=== PATIENT | male | born 1930 | race Caucasian/White ===

== ENCOUNTER 2018-01-29 00:18 | Emergency (ER) | payer MEDICARE ==
[~2018-01-29] VITALS: Ht 175.3 cm; Wt 74.8 kg
[~2018-01-29 00:18] MED LIST: RXCEPH500 PO; RXOXYACE PO
[2018-01-29] MEDS ORDERED: DIGOX125 MCG PO (01:02)
[2018-01-29] MEDS ORDERED: ATOR10 PO (01:02)
[2018-01-29] MEDS ORDERED: METO25ER PO (01:03)
[2018-01-29] MEDS ORDERED: WARF5 PO (01:03)
[2018-01-29] MEDS ORDERED: Lisinopril2.5 MG (01:03)
[2018-01-29 03:08] LABS: BASOPHILS ABSOLUTE AUTO 0.04 K/mm3 (0.00-0.23); BASOPHILS PERCENT AUTO 0 % (0-2); EOSINOPHILS ABSOLUTE AUTO 0.01 K/mm3 (0.00-0.68); EOSINOPHILS PERCENT AUTO 0 % (0-6); Hematocrit 41.4 % (37.0-53.0); Hemoglobin 13.1 g/dL (13.5-17.5); IMMATURE GRAN ABSOLUTE AUTO 0.03 K/mm3 (0.00-0.10); IMMATURE GRAN PERCENT AUTO 0 % (0-1); LYMPHOCYTES ABSOLUTE AUTO 1.42 K/mm3 (0.84-5.20); LYMPHOCYTES PERCENT AUTO 15 % (21-46); MONOCYTES ABSOLUTE AUTO 1.58 K/mm3 (0.16-1.47); MONOCYTES PERCENT AUTO 16 % (4-13); Mean Corpuscular HGB 31.2 pg (26.0-34.0); Mean Corpuscular HGB Conc 31.6 g/dL (31.5-36.5); Mean Corpuscular Volume 99 fL (80-100); Mean Platelet Volume 10.2 fL (9.1-12.4); NEUTROPHILS PERCENT AUTO 68 % (41-73); Platelet Count 202 K/mm3 (150-400); RDW Coefficient Variation 13.1 % (11.7-14.2); RDW Standard Deviation 46.7 fL (35.1-46.3); White Blood Cell Count 9.68 K/mm3 (4.00-11.30)
[2018-01-29 03:24] LABS: International Normalized Ratio 2.34
[2018-01-29 03:27] LABS: Alanine Aminotransfer (ALT/SGP 21 U/L (12-78); Albumin, Blood 3.6 g/dL (3.4-5.0); Alk Phos 155 U/L (50-136); Anion Gap 9 mmol/L (6-16); Aspartate Aminotrans (AST/SGOT 21 U/L (12-37); Bilirubin, Total 0.5 mg/dL (0.1-1.0); Blood Urea Nitrogen 21 mg/dL (8-24); Bun/Creatinine Ratio 22.9 (12.0-20.0); CO2, Blood 25 mmol/L (21-32); Calcium, Blood 8.3 mg/dL (8.5-10.1); Chloride, Blood 105 mmol/L (98-108); Creatinine, Blood 0.92 mg/dL (0.60-1.20); Globulin, Blood 3.5 g/dL (2.2-4.0); Glomerular Filtration Rate >60 (60-); Glucose, Blood 92 mg/dL (70-99); Potassium, Blood 4.2 mmol/L (3.5-5.5); Sodium, Blood 139 mmol/L (136-145); Total Protein, Blood 7.1 g/dL (6.4-8.2)
== END 2018-01-29 03:59 | disposition home or self-care (01) ==
LOC: ER 00:18
PROVIDERS: Emergency Medicine
DX: R19.7 Diarrhea, unspecified (principal); Z79.899 Other long term (current) drug therapy; Z79.01 Long term (current) use of anticoagulants
CPT/HCPCS: 36415; 80053; 85025; 85610; 99283

== ENCOUNTER 2018-07-20 17:18 | Inpatient (IN) | payer OTHER, MEDICARE ==
[~2018-07-20] VITALS: Ht 175.3 cm; Wt 71.9 kg
[~2018-07-20 17:18] MED LIST changes: +ATOR10 PO; +DIGOX125 MCG PO; +Lisinopril2.5 MG; +METO25ER PO; +WARF5 PO
[2018-07-20 17:33] LABS: BASOPHILS ABSOLUTE AUTO 0.07 K/mm3 (0.00-0.23); BASOPHILS PERCENT AUTO 1 % (0-2); EOSINOPHILS ABSOLUTE AUTO 0.17 K/mm3 (0.00-0.68); EOSINOPHILS PERCENT AUTO 2 % (0-6); Hematocrit 41.1 % (37.0-53.0); Hemoglobin 12.8 g/dL (13.5-17.5); IMMATURE GRAN ABSOLUTE AUTO 0.25 K/mm3 (0.00-0.10); IMMATURE GRAN PERCENT AUTO 2 % (0-1); LYMPHOCYTES ABSOLUTE AUTO 2.99 K/mm3 (0.84-5.20); LYMPHOCYTES PERCENT AUTO 29 % (21-46); MONOCYTES ABSOLUTE AUTO 1.25 K/mm3 (0.16-1.47); MONOCYTES PERCENT AUTO 12 % (4-13); Mean Corpuscular HGB 30.1 pg (26.0-34.0); Mean Corpuscular HGB Conc 31.1 g/dL (31.5-36.5); Mean Corpuscular Volume 97 fL (80-100); Mean Platelet Volume 9.9 fL (9.1-12.4); NEUTROPHILS ABSOLUTE AUTO 5.62 K/mm3 (1.96-9.15); NEUTROPHILS PERCENT AUTO 54 % (41-73); Platelet Count 349 K/mm3 (150-400); RDW Coefficient Variation 13.5 % (11.7-14.2); RDW Standard Deviation 48.2 fL (35.1-46.3); Red Blood Cell Count 4.25 M/mm3 (4.30-5.90); White Blood Cell Count 10.35 K/mm3 (4.00-11.30)
[2018-07-20 17:48] LABS: International Normalized Ratio 2.68; Prothrombin Time Results 26.1 Sec (9.7-11.5)
[2018-07-20 17:50] LABS: Alanine Aminotransfer (ALT/SGP 22 U/L (12-78); Albumin, Blood 3.3 g/dL (3.4-5.0); Albumin/Globulin Ratio 0.8 (0.8-1.8); Alk Phos 229 U/L (50-136); Anion Gap 7 mmol/L (6-16); Aspartate Aminotrans (AST/SGOT 33 U/L (12-37); Bilirubin, Total 0.7 mg/dL (0.1-1.0); Blood Urea Nitrogen 11 mg/dL (8-24); Bun/Creatinine Ratio 14.7 (12.0-20.0); CO2, Blood 28 mmol/L (21-32); Chloride, Blood 103 mmol/L (98-108); Creatinine, Blood 0.75 mg/dL (0.60-1.20); Ethanol (Alcohol), Blood, Med <3 mg/dL; Globulin, Blood 4.1 g/dL (2.2-4.0); Glomerular Filtration Rate >60 (60-); Glucose, Blood 122 mg/dL (70-99); Potassium, Blood 5.2 mmol/L (3.5-5.5); Sodium, Blood 138 mmol/L (136-145); Total Protein, Blood 7.4 g/dL (6.4-8.2)
[2018-07-20 20:36] LABS: Digoxin (Lanoxin) 0.24 ug/mL (0.80-2.00)
[2018-07-20 22:28] LABS: Hematocrit 37.7 % (37.0-53.0); Hemoglobin 11.7 g/dL (13.5-17.5)
[2018-07-21 01:58] LABS: U Amphetamine Screen Not Detected; U Barbituate Screen Not Detected; U Benzodiazapine Screen Not Detected; U Buprenorphine Screen Not Detected; U Cannabinoids Screen Not Detected; U Cocaine Screen Not Detected; U Methadone Screen Not Detected; U Methamphetamine Screen DETECTED; U Opiates Screen Not Detected; U Oxycodone Screen Not Detected; U Phencyclidine Screen Not Detected; U Propoxyphene Screen Not Detected
[2018-07-21 04:29] LABS: International Normalized Ratio 2.54; Prothrombin Time Results 24.8 Sec (9.7-11.5)
[2018-07-21 04:36] LABS: Anion Gap 9 mmol/L (6-16); Blood Urea Nitrogen 11 mg/dL (8-24); Bun/Creatinine Ratio 14.2 (12.0-20.0); CO2, Blood 25 mmol/L (21-32); Calcium, Blood 8.3 mg/dL (8.5-10.1); Chloride, Blood 105 mmol/L (98-108); Creatinine, Blood 0.77 mg/dL (0.60-1.20); Glomerular Filtration Rate >60 (60-); Glucose, Blood 116 mg/dL (70-99); Potassium, Blood 4.4 mmol/L (3.5-5.5); Sodium, Blood 139 mmol/L (136-145)
[2018-07-21 06:40] LABS: Magnesium, Blood 1.8 mg/dL (1.6-2.4)
[2018-07-22 06:25] LABS: International Normalized Ratio 3.58; Prothrombin Time Results 34.3 Sec (9.7-11.5)
[2018-07-22 08:56] LABS: BASOPHILS ABSOLUTE AUTO 0.02 K/mm3 (0.00-0.23); BASOPHILS PERCENT AUTO 0 % (0-2); EOSINOPHILS ABSOLUTE AUTO 0.01 K/mm3 (0.00-0.68); EOSINOPHILS PERCENT AUTO 0 % (0-6); Hematocrit 32.8 % (37.0-53.0); Hemoglobin 10.3 g/dL (13.5-17.5); IMMATURE GRAN ABSOLUTE AUTO 0.06 K/mm3 (0.00-0.10); IMMATURE GRAN PERCENT AUTO 1 % (0-1); LYMPHOCYTES ABSOLUTE AUTO 1.44 K/mm3 (0.84-5.20); LYMPHOCYTES PERCENT AUTO 12 % (21-46); MONOCYTES ABSOLUTE AUTO 1.31 K/mm3 (0.16-1.47); MONOCYTES PERCENT AUTO 11 % (4-13); Mean Corpuscular HGB 30.2 pg (26.0-34.0); Mean Corpuscular HGB Conc 31.4 g/dL (31.5-36.5); Mean Corpuscular Volume 96 fL (80-100); Mean Platelet Volume 10.7 fL (9.1-12.4); NEUTROPHILS ABSOLUTE AUTO 8.89 K/mm3 (1.96-9.15); NEUTROPHILS PERCENT AUTO 76 % (41-73); Platelet Count 257 K/mm3 (150-400); RDW Coefficient Variation 13.8 % (11.7-14.2); RDW Standard Deviation 48.5 fL (35.1-46.3); Red Blood Cell Count 3.41 M/mm3 (4.30-5.90); White Blood Cell Count 11.73 K/mm3 (4.00-11.30)
[2018-07-22 09:15] LABS: Anion Gap 10 mmol/L (6-16); Blood Urea Nitrogen 22 mg/dL (8-24); Bun/Creatinine Ratio 25.7 (12.0-20.0); CO2, Blood 25 mmol/L (21-32); Calcium, Blood 8.4 mg/dL (8.5-10.1); Chloride, Blood 104 mmol/L (98-108); Creatinine, Blood 0.86 mg/dL (0.60-1.20); Glomerular Filtration Rate >60 (60-); Glucose, Blood 128 mg/dL (70-99); Potassium, Blood 4.2 mmol/L (3.5-5.5); Sodium, Blood 139 mmol/L (136-145)
[2018-07-23 04:16] LABS: BASOPHILS ABSOLUTE AUTO 0.02 K/mm3 (0.00-0.23); BASOPHILS PERCENT AUTO 0 % (0-2); EOSINOPHILS ABSOLUTE AUTO 0.05 K/mm3 (0.00-0.68); EOSINOPHILS PERCENT AUTO 0 % (0-6); Hematocrit 30.5 % (37.0-53.0); Hemoglobin 9.7 g/dL (13.5-17.5); IMMATURE GRAN ABSOLUTE AUTO 0.07 K/mm3 (0.00-0.10); IMMATURE GRAN PERCENT AUTO 1 % (0-1); LYMPHOCYTES ABSOLUTE AUTO 1.71 K/mm3 (0.84-5.20); LYMPHOCYTES PERCENT AUTO 11 % (21-46); MONOCYTES ABSOLUTE AUTO 1.23 K/mm3 (0.16-1.47); MONOCYTES PERCENT AUTO 8 % (4-13); Mean Corpuscular HGB 29.7 pg (26.0-34.0); Mean Corpuscular HGB Conc 31.8 g/dL (31.5-36.5); Mean Platelet Volume 10.3 fL (9.1-12.4); NEUTROPHILS ABSOLUTE AUTO 12.08 K/mm3 (1.96-9.15); NEUTROPHILS PERCENT AUTO 80 % (41-73); Platelet Count 236 K/mm3 (150-400); RDW Coefficient Variation 13.7 % (11.7-14.2); RDW Standard Deviation 46.6 fL (35.1-46.3); Red Blood Cell Count 3.27 M/mm3 (4.30-5.90); White Blood Cell Count 15.16 K/mm3 (4.00-11.30)
[2018-07-23 04:18] LABS: Mean Corpuscular Volume 93 fL (80-100)
[2018-07-23 04:33] LABS: Anion Gap 7 mmol/L (6-16); Blood Urea Nitrogen 23 mg/dL (8-24); Bun/Creatinine Ratio 31.5 (12.0-20.0); CO2, Blood 26 mmol/L (21-32); Calcium, Blood 8.2 mg/dL (8.5-10.1); Chloride, Blood 103 mmol/L (98-108); Creatinine, Blood 0.73 mg/dL (0.60-1.20); Glomerular Filtration Rate >60 (60-); Glucose, Blood 116 mg/dL (70-99); Potassium, Blood 3.8 mmol/L (3.5-5.5); Sodium, Blood 136 mmol/L (136-145)
[2018-07-23 08:27] LABS: International Normalized Ratio 1.32; Prothrombin Time Results 13.4 Sec (9.7-11.5)
[2018-07-24 08:29] LABS: BASOPHILS ABSOLUTE AUTO 0.03 K/mm3 (0.00-0.23); BASOPHILS PERCENT AUTO 0 % (0-2); EOSINOPHILS ABSOLUTE AUTO 0.17 K/mm3 (0.00-0.68); EOSINOPHILS PERCENT AUTO 2 % (0-6); Hemoglobin 9.5 g/dL (13.5-17.5); IMMATURE GRAN ABSOLUTE AUTO 0.06 K/mm3 (0.00-0.10); IMMATURE GRAN PERCENT AUTO 1 % (0-1); LYMPHOCYTES ABSOLUTE AUTO 1.82 K/mm3 (0.84-5.20); LYMPHOCYTES PERCENT AUTO 17 % (21-46); MONOCYTES ABSOLUTE AUTO 1.14 K/mm3 (0.16-1.47); MONOCYTES PERCENT AUTO 11 % (4-13); Mean Corpuscular HGB 29.9 pg (26.0-34.0); Mean Corpuscular HGB Conc 31.7 g/dL (31.5-36.5); Mean Corpuscular Volume 94 fL (80-100); Mean Platelet Volume 10.4 fL (9.1-12.4); NEUTROPHILS ABSOLUTE AUTO 7.34 K/mm3 (1.96-9.15); NEUTROPHILS PERCENT AUTO 70 % (41-73); Platelet Count 256 K/mm3 (150-400); RDW Coefficient Variation 13.7 % (11.7-14.2); Red Blood Cell Count 3.18 M/mm3 (4.30-5.90); White Blood Cell Count 10.56 K/mm3 (4.00-11.30)
[2018-07-24 08:43] LABS: International Normalized Ratio 1.11; Prothrombin Time Results 11.4 Sec (9.7-11.5)
[2018-07-24 08:55] LABS: Anion Gap 9 mmol/L (6-16); Blood Urea Nitrogen 17 mg/dL (8-24); Bun/Creatinine Ratio 25.3 (12.0-20.0); CO2, Blood 25 mmol/L (21-32); Calcium, Blood 8.3 mg/dL (8.5-10.1); Chloride, Blood 103 mmol/L (98-108); Creatinine, Blood 0.67 mg/dL (0.60-1.20); Glomerular Filtration Rate >60 (60-); Glucose, Blood 90 mg/dL (70-99); Potassium, Blood 3.9 mmol/L (3.5-5.5); Sodium, Blood 137 mmol/L (136-145)
[2018-07-25 08:30] LABS: Anion Gap 6 mmol/L (6-16); Blood Urea Nitrogen 16 mg/dL (8-24); Bun/Creatinine Ratio 22.1 (12.0-20.0); CO2, Blood 27 mmol/L (21-32); Calcium, Blood 8.2 mg/dL (8.5-10.1); Chloride, Blood 104 mmol/L (98-108); Creatinine, Blood 0.72 mg/dL (0.60-1.20); Glomerular Filtration Rate >60 (60-); Glucose, Blood 99 mg/dL (70-99); Sodium, Blood 137 mmol/L (136-145)
[2018-07-25 08:35] LABS: International Normalized Ratio 1.06; Prothrombin Time Results 10.9 Sec (9.7-11.5)
== END 2018-07-25 12:28 | DRG 605 ==
LOC: ER 17:18 → SURS 17:19
PROVIDERS: Emergency Medicine; Internal Medicine Endocrinology, Diabetes & Metabolism; Nurse Practitioner Acute Care; Surgery
DX: S80.12XA Contusion of left lower leg, initial encounter (principal); S06.9X9A Unspecified intracranial injury with loss of consciousness of unspecified duration, initial encounter; I50.20 Unspecified systolic (congestive) heart failure; I69.954 Hemiplegia and hemiparesis following unspecified cerebrovascular disease affecting left non-dominant side; S82.841A Displaced bimalleolar fracture of right lower leg, initial encounter for closed fracture; I25.10 Atherosclerotic heart disease of native coronary artery without angina pectoris; I11.0 Hypertensive heart disease with heart failure; I48.2 Chronic atrial fibrillation; T45.511A Poisoning by anticoagulants, accidental (unintentional), initial encounter; I25.5 Ischemic cardiomyopathy; S01.01XA Laceration without foreign body of scalp, initial encounter; V86.09XA Driver of other special all-terrain or other off-road motor vehicle injured in traffic accident, initial encounter; Y92.488 Other paved roadways as the place of occurrence of the external cause; Z79.01 Long term (current) use of anticoagulants; Z95.1 Presence of aortocoronary bypass graft
CPT/HCPCS: 27810; 36415; 70450; 71045; 71260; 72125; 72170; 73600; 73610; 74177; 80048; 80053; 80162; 83690; 83735; 85014; 85018; 85025; 85610; 85730; 86850; 86900; 86901; 96361; 96374; 96375; 97110; 97162; 97166; 97530; 99152; 99285-25; C8929; G0378; G0480; G8978; G8979; G8987; G8988; J2405; J3010; J3430; J7030; Q9957; Q9967

== ENCOUNTER → 2019-06-08 | Outpatient (CLI) | payer MEDICARE ==
[~2019-06-08] MED LIST changes: +BISA10S PR; +FURO20 PO; +K-Dur10 MEQ PO; +LANOXIN125 MCG PO; -Lisinopril2.5 MG; +Lisinopril2.5 MG PO; +POTA10T PO; +SENN187 PO; +Tylenol325 MG PO; +WARF1 PO; +WARF4 PO; -WARF5 PO
== END | disposition home or self-care (01) ==
LOC: LAB 10:50 → LAB SHORT 10:50
DX: S81.802A Unspecified open wound, left lower leg, initial encounter (principal)
CPT/HCPCS: 87070; 87077; 87147; 87186; 87205

== ENCOUNTER → 2019-08-02 | Outpatient (CLI) | payer MEDICARE ==
[2019-08-02 18:12] LABS: BASOPHILS ABSOLUTE AUTO 0.04 K/mm3 (0.00-0.23); BASOPHILS PERCENT AUTO 1 % (0-2); EOSINOPHILS ABSOLUTE AUTO 0.15 K/mm3 (0.00-0.68); EOSINOPHILS PERCENT AUTO 3 % (0-6); Hematocrit 37.5 % (37.0-53.0); Hemoglobin 11.3 g/dL (13.5-17.5); IMMATURE GRAN ABSOLUTE AUTO 0.02 K/mm3 (0.00-0.10); IMMATURE GRAN PERCENT AUTO 0 % (0-1); LYMPHOCYTES ABSOLUTE AUTO 1.74 K/mm3 (0.84-5.20); LYMPHOCYTES PERCENT AUTO 30 % (21-46); MONOCYTES ABSOLUTE AUTO 0.71 K/mm3 (0.16-1.47); MONOCYTES PERCENT AUTO 12 % (4-13); Mean Corpuscular HGB 30.2 pg (26.0-34.0); Mean Corpuscular HGB Conc 30.1 g/dL (31.5-36.5); Mean Corpuscular Volume 100 fL (80-100); Mean Platelet Volume 10.4 fL (9.1-12.4); NEUTROPHILS ABSOLUTE AUTO 3.19 K/mm3 (1.96-9.15); NEUTROPHILS PERCENT AUTO 55 % (41-73); Platelet Count 258 K/mm3 (150-400); RDW Coefficient Variation 16.3 % (11.7-14.2); RDW Standard Deviation 59.7 fL (35.1-46.3); Red Blood Cell Count 3.74 M/mm3 (4.30-5.90); White Blood Cell Count 5.85 K/mm3 (4.00-11.30)
[2019-08-02 19:59] LABS: Alanine Aminotransfer (ALT/SGP 25 U/L (12-78); Albumin, Blood 3.2 g/dL (3.4-5.0); Albumin/Globulin Ratio 1.1 (0.8-1.8); Alk Phos 133 U/L (50-136); Anion Gap 7 mmol/L (6-16); Aspartate Aminotrans (AST/SGOT 22 U/L (12-37); Bilirubin, Total 0.8 mg/dL (0.1-1.0); Blood Urea Nitrogen 9 mg/dL (8-24); Bun/Creatinine Ratio 12.2 (12.0-20.0); CO2, Blood 30 mmol/L (21-32); Calcium, Blood 8.4 mg/dL (8.5-10.1); Chloride, Blood 108 mmol/L (98-108); Creatinine, Blood 0.74 mg/dL (0.60-1.20); Globulin, Blood 2.9 g/dL (2.2-4.0); Glomerular Filtration Rate >60 (60-); Glucose, Blood 156 mg/dL (70-99); Magnesium, Blood 1.7 mg/dL (1.6-2.4); Potassium, Blood 3.1 mmol/L (3.5-5.5); Sodium, Blood 145 mmol/L (136-145); Total Protein, Blood 6.1 g/dL (6.4-8.2)
== END | disposition home or self-care (01) ==
LOC: LAB SHORT 13:30 → LAB SRC 13:30
PROVIDERS: Nurse Practitioner Family
DX: R41.82 Altered mental status, unspecified (principal); I48.91 Unspecified atrial fibrillation; I25.10 Atherosclerotic heart disease of native coronary artery without angina pectoris
CPT/HCPCS: 80053; 83735; 85025

== ENCOUNTER → 2019-08-16 | Outpatient (CLI) | payer MEDICARE ==
[2019-08-16 19:08] LABS: Bilirubin, Urine Neg (Neg); Blood, Urine 2+ (Neg); Glucose Qualitative, Urine Neg (Neg); Ketones, Urine Neg (Neg); Leukocyte Esterase, Urine 2+ (Neg); Nitrite, Urine Neg (Neg); Protein, Urine 4+ (Neg); Urobilinogen, Urine NORM (Normal)
[2019-08-16 19:17] LABS: Appearance, Urine Hazy (Clear); Color, Urine Yellow (P-Yellow)
[2019-08-16 19:18] LABS: White Blood Cells, Urine 25-50 /hpf (0-5)
[2019-08-16 19:19] LABS: Bacteria Few /hpf; Hyaline Casts 0-2 /lpf (0-2); Mucus Light (0-Heavy); Squamous Epithelial Cells Few /hpf (Few)
== END | disposition home or self-care (01) ==
LOC: LAB HH 18:47
PROVIDERS: Hospitalist
DX: N39.0 Urinary tract infection, site not specified (principal)
CPT/HCPCS: 81001; 87086

== ENCOUNTER 2019-08-22 13:09 | Inpatient (IN) | payer MEDICARE ==
[~2019-08-22] VITALS: Ht 175.3 cm; Wt 78.7 kg
[~2019-08-22 13:09] MED LIST changes: -BISA10S PR; -FURO20 PO; -K-Dur10 MEQ PO; -LANOXIN125 MCG PO; -POTA10T PO; -SENN187 PO; -Tylenol325 MG PO; -WARF4 PO
[2019-08-22 14:19] LABS: BASOPHILS ABSOLUTE AUTO 0.05 K/mm3 (0.00-0.23); BASOPHILS PERCENT AUTO 1 % (0-2); EOSINOPHILS ABSOLUTE AUTO 0.14 K/mm3 (0.00-0.68); EOSINOPHILS PERCENT AUTO 2 % (0-6); Hematocrit 47.2 % (37.0-53.0); Hemoglobin 14.1 g/dL (13.5-17.5); IMMATURE GRAN ABSOLUTE AUTO 0.02 K/mm3 (0.00-0.10); IMMATURE GRAN PERCENT AUTO 0 % (0-1); LYMPHOCYTES ABSOLUTE AUTO 2.37 K/mm3 (0.84-5.20); LYMPHOCYTES PERCENT AUTO 30 % (21-46); MONOCYTES ABSOLUTE AUTO 0.99 K/mm3 (0.16-1.47); MONOCYTES PERCENT AUTO 13 % (4-13); Mean Corpuscular HGB 30.4 pg (26.0-34.0); Mean Corpuscular HGB Conc 29.9 g/dL (31.5-36.5); Mean Corpuscular Volume 102 fL (80-100); Mean Platelet Volume 10.7 fL (9.1-12.4); NEUTROPHILS ABSOLUTE AUTO 4.26 K/mm3 (1.96-9.15); NEUTROPHILS PERCENT AUTO 54 % (41-73); Platelet Count 226 K/mm3 (150-400); RDW Coefficient Variation 15.6 % (11.7-14.2); RDW Standard Deviation 58.7 fL (35.1-46.3); Red Blood Cell Count 4.64 M/mm3 (4.30-5.90); White Blood Cell Count 7.83 K/mm3 (4.00-11.30)
[2019-08-22 14:40] LABS: Alanine Aminotransfer (ALT/SGP 23 U/L (12-78); Albumin, Blood 3.6 g/dL (3.4-5.0); Albumin/Globulin Ratio 1.1 (0.8-1.8); Alk Phos 144 U/L (50-136); Anion Gap 5 mmol/L (6-16); Aspartate Aminotrans (AST/SGOT 29 U/L (12-37); Blood Urea Nitrogen 10 mg/dL (8-24); Bun/Creatinine Ratio 13.3 (12.0-20.0); CO2, Blood 26 mmol/L (21-32); Chloride, Blood 111 mmol/L (98-108); Creatinine, Blood 0.75 mg/dL (0.60-1.20); Globulin, Blood 3.3 g/dL (2.2-4.0); Glomerular Filtration Rate >60 (60-); Glucose, Blood 126 mg/dL (70-99); Potassium, Blood 4.4 mmol/L (3.5-5.5); Sodium, Blood 142 mmol/L (136-145); Total Protein, Blood 6.9 g/dL (6.4-8.2); Troponin I <0.015 ng/mL (0.000-0.040)
[2019-08-22 19:10] LABS: Digoxin (Lanoxin) <0.06 ug/mL (0.80-2.00)
[2019-08-22 19:48] LABS: International Normalized Ratio 3.92; Prothrombin Time Results 36.7 Sec (9.7-11.5)
[2019-08-22] MEDS ORDERED: WARF4 PO (19:55)
[2019-08-22] MEDS ORDERED: POTA10T PO (19:56)
--- NOTE | 2019-08-22 23:46 | NUR ---
ASSUMED CARE OF PATIENT AT APPROXIMATELY 2206 FROM ED RN TEODORO. PATIENT ARRIVED TO UNIT VIA STRETCHER; TRANSFER VIA 4 STAFF AND SLIDE SHEET FROM ED STRETCHER TO PCU STRETCHER. 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 PATIENT DENIES PAIN, NUMBNESS, TINGLING, DIZZINESS AND NAUSEA. ADMISSION COMPLETE. PATIENT NEEDS ASSISTANCE URINATING HOURLY; URINE SAMPLE SENT. AFIB WITH PVCS WITH RATE 90-110 ON TELE; OXYGEN SATURATION ABOVE 90% ON 2LPM VIA NC; BASELINE IS ROOM AIR. PATIENT DYSPNEIC AT TIMES. PIV S/L. PATIENT CURRENTLY RESTING IN BED; CALL LIGHT IN REACH; BED IN LOWEST POSISTION; BED ALARM ON; WILL CONTINUE TO MONITOR AND ASSESS UNTIL END OF SHIFT.
[2019-08-22 23:49] LABS: Source, Urine Clean Catch
[2019-08-22 23:52] LABS: Appearance, Urine Clear (Clear); Bilirubin, Urine Neg (Neg); Blood, Urine 4+ (Neg); Color, Urine Yellow (P-Yellow); Glucose Qualitative, Urine Neg (Neg); Ketones, Urine Neg (Neg); Leukocyte Esterase, Urine Neg (Neg); Nitrite, Urine Neg (Neg); Protein, Urine 2+ (Neg); Urobilinogen, Urine NORM (Normal)
[2019-08-22] MEDS ORDERED: LANOXIN125 MCG PO (23:54)
[2019-08-22 23:59] LABS: Bacteria Not Seen /hpf; Red Blood Cells, Urine TNTC /hpf (0-2); Squamous Epithelial Cells Not Seen /hpf (Few); White Blood Cells, Urine Not Seen /hpf (0-5)
[2019-08-23 05:44] LABS: BASOPHILS ABSOLUTE AUTO 0.05 K/mm3 (0.00-0.23); BASOPHILS PERCENT AUTO 1 % (0-2); EOSINOPHILS ABSOLUTE AUTO 0.23 K/mm3 (0.00-0.68); EOSINOPHILS PERCENT AUTO 3 % (0-6); Hematocrit 39.6 % (37.0-53.0); Hemoglobin 11.9 g/dL (13.5-17.5); IMMATURE GRAN ABSOLUTE AUTO 0.02 K/mm3 (0.00-0.10); IMMATURE GRAN PERCENT AUTO 0 % (0-1); LYMPHOCYTES ABSOLUTE AUTO 2.11 K/mm3 (0.84-5.20); LYMPHOCYTES PERCENT AUTO 29 % (21-46); MONOCYTES ABSOLUTE AUTO 1.01 K/mm3 (0.16-1.47); MONOCYTES PERCENT AUTO 14 % (4-13); Mean Corpuscular HGB 29.9 pg (26.0-34.0); Mean Corpuscular HGB Conc 30.1 g/dL (31.5-36.5); Mean Corpuscular Volume 100 fL (80-100); Mean Platelet Volume 10.2 fL (9.1-12.4); NEUTROPHILS ABSOLUTE AUTO 3.86 K/mm3 (1.96-9.15); NEUTROPHILS PERCENT AUTO 53 % (41-73); Platelet Count 218 K/mm3 (150-400); RDW Coefficient Variation 15.4 % (11.7-14.2); RDW Standard Deviation 56.4 fL (35.1-46.3); Red Blood Cell Count 3.98 M/mm3 (4.30-5.90); White Blood Cell Count 7.28 K/mm3 (4.00-11.30)
[2019-08-23 06:04] LABS: Anion Gap 4 mmol/L (6-16); Blood Urea Nitrogen 9 mg/dL (8-24); Bun/Creatinine Ratio 9.9 (12.0-20.0); CO2, Blood 31 mmol/L (21-32); Calcium, Blood 8.4 mg/dL (8.5-10.1); Chloride, Blood 111 mmol/L (98-108); Creatinine, Blood 0.91 mg/dL (0.60-1.20); Glomerular Filtration Rate >60 (60-); Glucose, Blood 70 mg/dL (70-99); Potassium, Blood 3.9 mmol/L (3.5-5.5); Sodium, Blood 146 mmol/L (136-145); Troponin I 0.025 ng/mL (0.000-0.040)
--- NOTE | 2019-08-23 06:07 | NUR ---
PATIENT HAS SLEPT ABOUT FOUR HOURS OFF AND ON; CALLED ABOUT EVERY 30 MINUTES TO AN HOUR TO URINATE. PATIENT'S CONFUSION SEEMED TO GET WORSE THROUGHOUT THE NIGHT; MAKING ODD STATEMENTS. PATIENT ATTEMPTED TO AMBULATE MULTIPLE TIMES T/O THE NIGHT. PATIENT COMPLAINED OF R ANKLE PAIN (CHRONIC); MEDICATED PER EMAR; ICE PACK; WARM BLANKETS. VSS. NO OTHER ACUTE CHANGES TO REPORT. WILL CONTINUE TO MONITOR AND ASSESS UNTIL END OF SHIFT.
--- NOTE | 2019-08-23 08:08 | NUR ---
Al is sleeping when I enter the room, respirations are even and unlabored, he is in Alexis's position. SPO2 100 on 3 l/min n.c. delivery of oxygen . O2 delivery reduced to 2 l/min, no change to spo2.
--- NOTE | 2019-08-23 12:43 | NUR ---
Dr. De Los Santos was here and spoke with the Noa as well as their friend who lives with them and helps Al at home. Code status was discussed.
--- NOTE | 2019-08-23 12:45 | NUR ---
Pt was assisted to the bedside commode, and said that he needed some more time to have a BM. His is in the room, with him, and states she will call the staff when he is done, for staff to assist him off of the bedside commode.
[2019-08-23 14:34] LABS: International Normalized Ratio 3.09; Prothrombin Time Results 29.6 Sec (9.7-11.5)
--- NOTE | 2019-08-23 21:41 | NUR ---
ASSUMED CARE OF PATIENT AT APPROXIMATELY 1900 EMMANUEL Munoz RN. PATIENT SLEEPING DURING BEDSIDE REPORT. PATIENT HAS BEEN INCONTINENT OF URINE AND USING THE URINAL ABOUT EVERY 45 MINUTES; LASIX BID. 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 PATIENT REPORTS THAT HE HALLUCINATES WHEN HE IS DREAMING AT HOME. PATIENT DENIES PAIN, NUMBNESS, TINGLING, DIZZINESS AND NAUSEA. AFIB WITH PVCS WITH RATE 90-110 ON TELE; OXYGEN SATURATION ABOVE 90% ON 2LPM VIA NC; BASELINE IS ROOM AIR. DYSPNEA IMPROVED; PATIENT ABLE TO TOLERATE HOB LOWERED FOR TURNING. PIV S/L. BEDBATH GIVEN. PATIENT CURRENTLY RESTING IN BED; CALL LIGHT IN REACH; BED IN LOWEST POSISTION; BED ALARM ON; WILL CONTINUE TO MONITOR AND ASSESS UNTIL END OF SHIFT.
[2019-08-24 06:22] LABS: International Normalized Ratio 2.13; Prothrombin Time Results 21.1 Sec (9.7-11.5)
[2019-08-24 06:26] LABS: Anion Gap 8 mmol/L (6-16); Blood Urea Nitrogen 15 mg/dL (8-24); Bun/Creatinine Ratio 16.8 (12.0-20.0); CO2, Blood 31 mmol/L (21-32); Calcium, Blood 8.5 mg/dL (8.5-10.1); Chloride, Blood 106 mmol/L (98-108); Creatinine, Blood 0.89 mg/dL (0.60-1.20); Glomerular Filtration Rate >60 (60-); Glucose, Blood 79 mg/dL (70-99); Magnesium, Blood 1.5 mg/dL (1.6-2.4); Potassium, Blood 3.7 mmol/L (3.5-5.5); Sodium, Blood 145 mmol/L (136-145)
--- NOTE | 2019-08-24 06:30 | NUR ---
PATIENT SLEPT ABOUT EIGHT HOURS LAST NIGHT; INCONTINENT OF URINE AND ATTEMPTED TO USE URINAL AT NIGHT; PATIENT URINATED INTO MILK CARTON AT ONE POINT. VSS. NO OTHER ACUTE CHANGES TO REPORT. WILL CONTINUE TO MONITOR AND ASSESS UNTIL END OF SHIFT.
[2019-08-24 06:59] LABS: BASOPHILS ABSOLUTE AUTO 0.04 K/mm3 (0.00-0.23); BASOPHILS PERCENT AUTO 1 % (0-2); EOSINOPHILS PERCENT AUTO 3 % (0-6); Hematocrit 38.5 % (37.0-53.0); IMMATURE GRAN ABSOLUTE AUTO 0.02 K/mm3 (0.00-0.10); IMMATURE GRAN PERCENT AUTO 0 % (0-1); LYMPHOCYTES ABSOLUTE AUTO 2.37 K/mm3 (0.84-5.20); LYMPHOCYTES PERCENT AUTO 29 % (21-46); MONOCYTES ABSOLUTE AUTO 1.02 K/mm3 (0.16-1.47); MONOCYTES PERCENT AUTO 13 % (4-13); Mean Corpuscular HGB 30.6 pg (26.0-34.0); Mean Corpuscular HGB Conc 31.2 g/dL (31.5-36.5); Mean Corpuscular Volume 98 fL (80-100); Mean Platelet Volume 10.1 fL (9.1-12.4); NEUTROPHILS ABSOLUTE AUTO 4.48 K/mm3 (1.96-9.15); NEUTROPHILS PERCENT AUTO 55 % (41-73); Platelet Count 207 K/mm3 (150-400); RDW Coefficient Variation 15.2 % (11.7-14.2); RDW Standard Deviation 54.3 fL (35.1-46.3); Red Blood Cell Count 3.92 M/mm3 (4.30-5.90); White Blood Cell Count 8.13 K/mm3 (4.00-11.30)
--- NOTE | 2019-08-24 12:56 | NUR ---
DISCHARGE SUMMARY- Patient has been up in recliner chair since breakfast, requires 2 person max assist to transfer as he bears weight, but wasn't able to take steps toward the chair to pivot. He is oriented to room, person, events. Denies c/o discomfort or SOB. BP initially low, rechecked and is within paramters for Lasix IV. However, after the Lasix it was below the parameters for Lisinopril (held). Dr. Jannet De Los Santos to see patient with spouse and wrote discharge orders for Home with [facility] to resume. Spouse left around noon to get clothes for patient to go home in.
[2019-08-24] MEDS ORDERED: Tylenol325 MG PO (14:11)
[2019-08-24] MEDS ORDERED: BISA10S PR (14:29)
[2019-08-24] MEDS ORDERED: K-Dur10 MEQ PO (14:40)
[2019-08-24] MEDS ORDERED: SENN187 PO (14:41)
[2019-08-24] MEDS ORDERED: FURO20 PO (14:46)
== END 2019-08-24 15:35 | disposition home or self-care (01) | DRG 291 ==
LOC: ER 13:09 → PCU 20:35
PROVIDERS: Emergency Medicine; Family Medicine; Nurse Practitioner Acute Care; Physician Assistant; ADMIT Internal Medicine
DX: I11.0 Hypertensive heart disease with heart failure (principal); J96.91 Respiratory failure, unspecified with hypoxia; I48.20 Chronic atrial fibrillation, unspecified; I50.43 Acute on chronic combined systolic (congestive) and diastolic (congestive) heart failure; I25.2 Old myocardial infarction; Z95.5 Presence of coronary angioplasty implant and graft; I25.10 Atherosclerotic heart disease of native coronary artery without angina pectoris; Z79.02 Long term (current) use of antithrombotics/antiplatelets; E78.5 Hyperlipidemia, unspecified; I71.4 Abdominal aortic aneurysm, without rupture; I25.5 Ischemic cardiomyopathy; Z66 Do not resuscitate
CPT/HCPCS: 36415; 36416; 71046; 80048; 80053; 80162; 81001; 83735; 83880; 84443; 84484; 85025; 85610; 87086; 87147; 93005; 93010; 93306; 94762; 96374; 97110; 97116; 97162; 97530; 99285-25; A9270; J1940

== ENCOUNTER 2021-07-14 11:53 | Emergency (ER) | payer OTHER ==
[~2021-07-14] VITALS: Ht 175.3 cm; Wt 72.6 kg
[~2021-07-14 11:53] MED LIST changes: +ACET325 PO; -ATOR10 PO; +ATOR40TA PO; +BISA10S PR; +FURO20 PO; +K-Dur10 MEQ PO; +LANOXIN125 MCG PO; +POTA10T PO; +SENN187 PO; +WARF4 PO
[2021-07-14 13:28] LABS: BASOPHILS ABSOLUTE AUTO 0.03 K/mm3 (0.00-0.23); BASOPHILS PERCENT AUTO 0 % (0-2); EOSINOPHILS PERCENT AUTO 0 % (0-6); Hematocrit 41.5 % (37.0-53.0); Hemoglobin 13.2 g/dL (13.5-17.5); IMMATURE GRAN ABSOLUTE AUTO 0.09 K/mm3 (0.00-0.10); IMMATURE GRAN PERCENT AUTO 1 % (0-1); LYMPHOCYTES ABSOLUTE AUTO 1.46 K/mm3 (0.84-5.20); LYMPHOCYTES PERCENT AUTO 18 % (21-46); MONOCYTES PERCENT AUTO 10 % (4-13); Mean Corpuscular HGB 30.6 pg (26.0-34.0); Mean Corpuscular HGB Conc 31.8 g/dL (31.5-36.5); Mean Corpuscular Volume 96 fL (80-100); Mean Platelet Volume 11.1 fL (9.1-12.4); NEUTROPHILS ABSOLUTE AUTO 5.58 K/mm3 (1.96-9.15); NEUTROPHILS PERCENT AUTO 70 % (41-73); Platelet Count 224 K/mm3 (150-400); RDW Coefficient Variation 13.5 % (11.7-14.2); RDW Standard Deviation 48.7 fL (35.1-46.3); Red Blood Cell Count 4.32 M/mm3 (4.30-5.90); White Blood Cell Count 7.96 K/mm3 (4.00-11.30)
[2021-07-14 13:47] LABS: Alanine Aminotransfer (ALT/SGP 26 U/L (12-78); Albumin, Blood 3.2 g/dL (3.4-5.0); Albumin/Globulin Ratio 0.8 (0.8-1.8); Alk Phos 145 U/L (50-136); Anion Gap 8 mmol/L (6-16); Aspartate Aminotrans (AST/SGOT 39 U/L (12-37); Bilirubin, Total 0.6 mg/dL (0.1-1.0); Blood Urea Nitrogen 26 mg/dL (8-24); Bun/Creatinine Ratio 23.6 (12.0-20.0); CO2, Blood 23 mmol/L (21-32); Calcium, Blood 9.1 mg/dL (8.5-10.1); Chloride, Blood 108 mmol/L (98-108); Glomerular Filtration Rate >60 (60-); Glucose, Blood 97 mg/dL (70-99); Potassium, Blood 3.7 mmol/L (3.5-5.5); Sodium, Blood 139 mmol/L (136-145); Total Protein, Blood 7.2 g/dL (6.4-8.2)
== END 2021-07-14 19:40 | disposition home or self-care (01) ==
LOC: ER 11:53
PROVIDERS: Emergency Medicine
DX: U07.1 COVID-19 (principal); I48.91 Unspecified atrial fibrillation; R53.1 Weakness; R53.83 Other fatigue; R41.0 Disorientation, unspecified; R00.0 Tachycardia, unspecified; I11.0 Hypertensive heart disease with heart failure; I50.22 Chronic systolic (congestive) heart failure; I25.10 Atherosclerotic heart disease of native coronary artery without angina pectoris; Z95.1 Presence of aortocoronary bypass graft; Z79.01 Long term (current) use of anticoagulants; Z79.899 Other long term (current) drug therapy
CPT/HCPCS: 36415; 71045; 80053; 83735; 85025; 93005; 93010; 99285-25; A9270; J7030

== ENCOUNTER 2021-07-16 16:40 | Inpatient (IN) | payer OTHER ==
[~2021-07-16] VITALS: Ht 175.3 cm; Wt 74.1 kg
[2021-07-16 17:30] LABS: Hematocrit 36.8 % (37.0-53.0); Mean Corpuscular HGB 30.6 pg (26.0-34.0); Mean Corpuscular HGB Conc 32.6 g/dL (31.5-36.5); Mean Corpuscular Volume 94 fL (80-100); Mean Platelet Volume 11.5 fL (9.1-12.4); Platelet Count 243 K/mm3 (150-400); RDW Coefficient Variation 13.6 % (11.7-14.2); RDW Standard Deviation 46.9 fL (35.1-46.3); Red Blood Cell Count 3.92 M/mm3 (4.30-5.90); White Blood Cell Count 8.99 K/mm3 (4.00-11.30)
[2021-07-16 17:45] LABS: Alanine Aminotransfer (ALT/SGP 21 U/L (12-78); Albumin, Blood 2.8 g/dL (3.4-5.0); Albumin/Globulin Ratio 0.8 (0.8-1.8); Alk Phos 123 U/L (50-136); Anion Gap 9 mmol/L (6-16); Aspartate Aminotrans (AST/SGOT 45 U/L (12-37); Bilirubin, Total 0.8 mg/dL (0.1-1.0); Blood Urea Nitrogen 19 mg/dL (8-24); Bun/Creatinine Ratio 19.1 (12.0-20.0); CO2, Blood 23 mmol/L (21-32); Calcium, Blood 8.1 mg/dL (8.5-10.1); Chloride, Blood 109 mmol/L (98-108); Creatinine, Blood 0.99 mg/dL (0.60-1.20); Globulin, Blood 3.6 g/dL (2.2-4.0); Glomerular Filtration Rate >60 (60-); Glucose, Blood 91 mg/dL (70-99); Potassium, Blood 3.6 mmol/L (3.5-5.5); Sodium, Blood 141 mmol/L (136-145); Total Protein, Blood 6.4 g/dL (6.4-8.2); Troponin I 0.138 ng/mL (0.000-0.040)
[2021-07-16 17:55] LABS: BAND PERCENT MAN 8 % (0-8); BASOPHILS PERCENT MAN 0 % (0-2); EOSINOPHILS PERCENT MAN 0 % (0-6); LYMPHOCYTES % ATYPICAL MANUAL 3 % (0-0); LYMPHOCYTES ABSOLUTE MAN 1.16 K/mm3 (0.84-5.20); LYMPHOCYTES PERCENT MAN 10 % (21-46); METAMYELOCYTE ABSOLUTE MAN 0.08 K/mm3 (0.00-0.00); METAMYELOCYTE PERCENT MAN 1 % (0-0); MONOCYTES ABSOLUTE MAN 0.44 K/mm3 (0.16-1.47); MONOCYTES PERCENT MAN 5 % (4-13); NEUTROPHILS ABSOLUTE MAN 7.28 K/mm3 (1.96-9.15); SEG NEUTROPHILS PERCENT MAN 73 % (41-73); TOTAL CELLS COUNTED 100
[2021-07-16 18:21] LABS: Prothrombin Time Results >90.0 Sec (9.7-11.5)
[2021-07-16 18:25] LABS: International Normalized Ratio >10.00
[2021-07-17 00:30] LABS: CPK Creatine Kinase 134 U/L (39-308); Digoxin (Lanoxin) 1.25 ug/mL (0.80-2.00); Troponin I 0.141 ng/mL (0.000-0.040)
[2021-07-17 08:20] LABS: BASOPHILS ABSOLUTE AUTO 0.02 K/mm3 (0.00-0.23); BASOPHILS PERCENT AUTO 0 % (0-2); EOSINOPHILS PERCENT AUTO 0 % (0-6); Hematocrit 34.9 % (37.0-53.0); Hemoglobin 11.3 g/dL (13.5-17.5); Mean Corpuscular HGB 31.1 pg (26.0-34.0); Mean Corpuscular HGB Conc 32.4 g/dL (31.5-36.5); Mean Corpuscular Volume 96 fL (80-100); Mean Platelet Volume 11.1 fL (9.1-12.4); Platelet Count 218 K/mm3 (150-400); RDW Coefficient Variation 13.6 % (11.7-14.2); RDW Standard Deviation 48.5 fL (35.1-46.3); Red Blood Cell Count 3.63 M/mm3 (4.30-5.90); White Blood Cell Count 5.34 K/mm3 (4.00-11.30)
[2021-07-17 08:27] LABS: IMMATURE GRAN ABSOLUTE AUTO 0.22 K/mm3 (0.00-0.10); IMMATURE GRAN PERCENT AUTO 4 % (0-1); LYMPHOCYTES ABSOLUTE AUTO 0.89 K/mm3 (0.84-5.20); LYMPHOCYTES PERCENT AUTO 17 % (21-46); MONOCYTES ABSOLUTE AUTO 0.21 K/mm3 (0.16-1.47); MONOCYTES PERCENT AUTO 4 % (4-13); NEUTROPHILS PERCENT AUTO 75 % (41-73)
[2021-07-17 08:45] LABS: International Normalized Ratio 1.43; Prothrombin Time Results 15.1 Sec (9.7-11.5)
[2021-07-17 08:58] LABS: Alanine Aminotransfer (ALT/SGP 21 U/L (12-78); Albumin, Blood 2.4 g/dL (3.4-5.0); Albumin/Globulin Ratio 0.7 (0.8-1.8); Alk Phos 113 U/L (50-136); Anion Gap 8 mmol/L (6-16); Aspartate Aminotrans (AST/SGOT 38 U/L (12-37); Bilirubin, Total 0.9 mg/dL (0.1-1.0); Blood Urea Nitrogen 19 mg/dL (8-24); Bun/Creatinine Ratio 20.6 (12.0-20.0); CO2, Blood 24 mmol/L (21-32); CPK Creatine Kinase 116 U/L (39-308); Calcium, Blood 7.6 mg/dL (8.5-10.1); Chloride, Blood 111 mmol/L (98-108); Creatinine, Blood 0.92 mg/dL (0.60-1.20); Globulin, Blood 3.5 g/dL (2.2-4.0); Glomerular Filtration Rate >60 (60-); Glucose, Blood 122 mg/dL (70-99); Potassium, Blood 3.7 mmol/L (3.5-5.5); Sodium, Blood 143 mmol/L (136-145); Total Protein, Blood 5.9 g/dL (6.4-8.2); Troponin I 0.078 ng/mL (0.000-0.040)
--- NOTE | 2021-07-17 18:34 | NUR ---
SHIFT SUMMARY PATIENT NEW ADMIT TO UNIT THIS SHIFT. ALERT, GALENA, AND SOMETIMES FORGETFUL. PLEASANT AND COOPERATIVE. TAKES PILLS WHOLE WITH WATER. IV FLUIDS RUNNING. USING URINAL IN BED. VSS. O2 STABLE ON RA. LUNG SOUNDS DIM THROUGHOUT WITH WET COUGH. TELE AFIB AT 110. DECONDITIONED GENERALLY AND WEAK.
[2021-07-17 21:51] LABS: Source, Urine Catheter
[2021-07-17 21:53] LABS: Bilirubin, Urine Neg (Neg); Blood, Urine 2+ (Neg); Glucose Qualitative, Urine Neg (Neg); Ketones, Urine 1+ (Neg); Leukocyte Esterase, Urine Neg (Neg); Nitrite, Urine Neg (Neg); Protein, Urine 4+ (Neg); Specific Gravity, Urine 1.015 (1.003-1.022); Urobilinogen, Urine NORM (Normal)
[2021-07-17 21:59] LABS: Color, Urine Yellow (P-Yellow)
[2021-07-17 22:18] LABS: Amorphous Light (0-Heavy); Bacteria Mod /hpf; Red Blood Cells, Urine 0-2 /hpf (0-2); Squamous Epithelial Cells Rare /hpf (Few)
[2021-07-17 22:19] LABS: Appearance, Urine Hazy (Clear)
[2021-07-18 05:33] LABS: Hemoglobin 11.5 g/dL (13.5-17.5); Mean Corpuscular HGB 30.3 pg (26.0-34.0); Mean Corpuscular HGB Conc 31.9 g/dL (31.5-36.5); Mean Corpuscular Volume 95 fL (80-100); Mean Platelet Volume 11.6 fL (9.1-12.4); Platelet Count 234 K/mm3 (150-400); RDW Coefficient Variation 13.6 % (11.7-14.2); RDW Standard Deviation 47.5 fL (35.1-46.3)
[2021-07-18 05:46] LABS: International Normalized Ratio 1.36; Prothrombin Time Results 14.4 Sec (9.7-11.5)
[2021-07-18 06:07] LABS: BAND PERCENT MAN 11 % (0-8); BASOPHILS PERCENT MAN 0 % (0-2); EOSINOPHILS PERCENT MAN 0 % (0-6); LYMPHOCYTES ABSOLUTE MAN 1.22 K/mm3 (0.84-5.20); LYMPHOCYTES PERCENT MAN 18 % (21-46); MONOCYTES ABSOLUTE MAN 0.68 K/mm3 (0.16-1.47); MONOCYTES PERCENT MAN 10 % (4-13); MYELOCYTE ABSOLUTE MAN 0.13 K/mm3 (0.00-0.00); MYELOCYTE PERCENT MAN 2 % (0-0); NEUTROPHILS ABSOLUTE MAN 4.76 K/mm3 (1.96-9.15); SEG NEUTROPHILS PERCENT MAN 59 % (41-73); TOTAL CELLS COUNTED 100
[2021-07-18 06:08] LABS: Alanine Aminotransfer (ALT/SGP 20 U/L (12-78); Albumin, Blood 2.2 g/dL (3.4-5.0); Albumin/Globulin Ratio 0.6 (0.8-1.8); Alk Phos 106 U/L (50-136); Anion Gap 8 mmol/L (6-16); Aspartate Aminotrans (AST/SGOT 44 U/L (12-37); Bilirubin, Total 0.9 mg/dL (0.1-1.0); Blood Urea Nitrogen 22 mg/dL (8-24); Bun/Creatinine Ratio 30.3 (12.0-20.0); CO2, Blood 22 mmol/L (21-32); Calcium, Blood 7.9 mg/dL (8.5-10.1); Chloride, Blood 110 mmol/L (98-108); Creatinine, Blood 0.73 mg/dL (0.60-1.20); Globulin, Blood 3.4 g/dL (2.2-4.0); Glomerular Filtration Rate >60 (60-); Glucose, Blood 113 mg/dL (70-99); Potassium, Blood 3.5 mmol/L (3.5-5.5); Sodium, Blood 140 mmol/L (136-145); Total Protein, Blood 5.6 g/dL (6.4-8.2)
--- NOTE | 2021-07-18 07:13 | NUR ---
SHIFT SUMMARY S/P COVID c GENERALIZED WEAKNESS, ALERT, ORIENTED TO SELF AND INTERMITTENTLY PLACE, ABLE TO TELL STORIES ABOUT PAST EXPERIENCES, INCONTINENT c ATTENDS IN PLACE, TELE SHOWS AFIB c PVCs, PT DENIES SOB, DENIES CHEST PAIN/PRESSURE. NO ACUTE EVENTS THIS SHIFT. CALL LIGHT IN REACH, REPORT GIVEN TO DAY RN.
--- NOTE | 2021-07-18 10:46 | NUR ---
PT ALERT ORIENTED X3-4. INTERMITTENT CONFUSION. PATIENT THIS AM CLAIMS "THE CHAIRS ARE UPSIDE DOWN ON THE CEILING, IM SEEING THIS, BUT I KNOW ITS NOT REAL". HE STATES HE HALLUCINATES SOMETIMES. PER ON PHONE THIS IS PATIENTS NORMAL BASELINE. LUNGS SOUNDING DIMINISHED. ON ROOM AIR SATING MID 90'S. DENIES SOB. TELE SHOWING AFIB WITH HR AVERAGING 90'S. DENIES CHEST PAIN/PRESSURE. VITAL SIGNS STABLE. BOWEL TONES PRESENT. ATTENDS IN PLACE. USES WHEELCHAIR AT BASELINE. Q2 TURNING AND NEEDED. LR INFUSING AT 125 ML/HR. SKIN PALE AND FRAGILE. CALL LIGHT IN REACH. DENIES PAIN/NEEDS AT THIS TIME. SPOKE WITH ON PHONE FOR UPDATE. WILL CONTINUE TO MONITOR.
--- NOTE | 2021-07-18 19:21 | NUR ---
NO ACUTE CHANGES. SEE PREVIOUS NOTES. PATIENT HAVING TROUBLE USING URINAL. TWO EPISODES OF INCONTINENCE IN ATTENDS. Q2 TURNING AND NEEDED. PATIENT HARD OF HEARING. SMALL APPETITE. DRINKING WATER THROUGHOUT DAY. DENIES PAINS. REMAINS ON ROOM AIR SATING 94% AND ABOVE. CALL LIGHT IN REACH. REPORTED OFF TO ONCOMING RN.
[2021-07-19 06:19] LABS: BASOPHILS ABSOLUTE AUTO 0.06 K/mm3 (0.00-0.23); BASOPHILS PERCENT AUTO 0 % (0-2); EOSINOPHILS PERCENT AUTO 0 % (0-6); Hemoglobin 12.6 g/dL (13.5-17.5); IMMATURE GRAN ABSOLUTE AUTO 0.51 K/mm3 (0.00-0.10); IMMATURE GRAN PERCENT AUTO 3 % (0-1); LYMPHOCYTES ABSOLUTE AUTO 0.86 K/mm3 (0.84-5.20); LYMPHOCYTES PERCENT AUTO 5 % (21-46); MONOCYTES ABSOLUTE AUTO 1.06 K/mm3 (0.16-1.47); MONOCYTES PERCENT AUTO 6 % (4-13); Mean Corpuscular HGB 31.1 pg (26.0-34.0); Mean Corpuscular HGB Conc 33.2 g/dL (31.5-36.5); Mean Corpuscular Volume 94 fL (80-100); Mean Platelet Volume 11.4 fL (9.1-12.4); NEUTROPHILS ABSOLUTE AUTO 15.32 K/mm3 (1.96-9.15); NEUTROPHILS PERCENT AUTO 86 % (41-73); Platelet Count 257 K/mm3 (150-400); RDW Coefficient Variation 13.4 % (11.7-14.2); RDW Standard Deviation 46.2 fL (35.1-46.3); Red Blood Cell Count 4.05 M/mm3 (4.30-5.90); White Blood Cell Count 17.81 K/mm3 (4.00-11.30)
--- NOTE | 2021-07-19 06:19 | NUR ---
SHIFT SUMMARY PT IS ALERT WITH SOME CONFUSION. HE IS VERY HARD OF HEARING AND HEARING AIDS ARE IN PLACE. STATES LEFT EAR "WORKS" BETTER. VITAL SIGNS ARE STABLE AND ON ROOM AIR WITH SATS ABOVE 92%. PT IS INCONT BUT USES URINAL SOMETIMES, ATTENDS IN PLACE. STATES HE WILL "LET US KNOW WHEN HE HAS HAD AN ACCIDENT." PHONE PLACED IN ROOM SO THAT HE IS ABLE TO COMMUNICATE WITH . HE HAS CALLED HER TWICE. CALL LIGHT IS WITHIN REACH.
[2021-07-19 06:32] LABS: International Normalized Ratio 1.55; Prothrombin Time Results 16.3 Sec (9.7-11.5)
[2021-07-19 06:42] LABS: Alanine Aminotransfer (ALT/SGP 26 U/L (12-78); Albumin, Blood 2.3 g/dL (3.4-5.0); Albumin/Globulin Ratio 0.7 (0.8-1.8); Alk Phos 109 U/L (50-136); Anion Gap 8 mmol/L (6-16); Aspartate Aminotrans (AST/SGOT 55 U/L (12-37); Blood Urea Nitrogen 19 mg/dL (8-24); Bun/Creatinine Ratio 27.5 (12.0-20.0); CO2, Blood 22 mmol/L (21-32); Chloride, Blood 108 mmol/L (98-108); Creatinine, Blood 0.69 mg/dL (0.60-1.20); Globulin, Blood 3.3 g/dL (2.2-4.0); Glomerular Filtration Rate >60 (60-); Glucose, Blood 129 mg/dL (70-99); Potassium, Blood 3.2 mmol/L (3.5-5.5); Sodium, Blood 138 mmol/L (136-145); Total Protein, Blood 5.6 g/dL (6.4-8.2)
--- NOTE | 2021-07-19 11:42 | NUR ---
PT HAS INTERMITTENT CONFUSION, PER THIS IS HIS BASELINE. ABLE TO STATE NAME, BIRTHDATE AND PLACE. PERRLA. DENIES N/T. ON ROOM AIR SATING 94%. VERY WEAK COUGH WITH MINIMAL SPUTUM. LUNGS SOUND DIMINISHED. POSITIONING PATIENT TO HELP WITH COUGH. TELE SHOWING AFIB WITH HR AVERAGING 110 THIS AM. VITAL SIGNS STABLE. DENIES CHEST PAIN/PRESSURE. NO SIGNS OF EDEMA. BOWEL TONES PRESENT. USING URINAL WITH ASSISTANCE, BUT ALSO HAVING INCONTINENT EPISODES. ABDOMEN DISTENED, PER PATIENT THIS IS NORMAL. NO PAIN IN ABDOMEN WITH PALPATION. SKIN OVERALL FRAGILE AND PALE. DENIES OVERALL PAIN. SPOKE WITH DR. ENCINAS THIS AM TO UPDATE. NEW ORDERS PLACED. IV POTASSIUM INFUSING AT THIS TIME. WILL CONTINUE TO MONITOR. CALL LIGHT IN REACH. SPOKE WITH PATIENTS THIS AM TO UPDATE.
--- NOTE | 2021-07-19 13:35 | NUR ---
ANTIBIOTICS INFUSED. POTASSIUM INFUSING. PT NOT HUNGRY FOR LUNCH. VITALS REMAIN STABLE. ON ROOM AIR WITH SATS 94% AND ABOVE. 48 BEAT RUN OF VTACH, NONSYMPTOMATIC, PATIENT SLEEPING AT TIME. STRIP IN CHART. WILL CONTINUE TO MONITOR.
--- NOTE | 2021-07-19 18:35 | NUR ---
NO ACUTE CHANGES. SEE PREVIOUS NOTES. PATIENT REMAINS ON ROOM AIR SATING 94%. ONE EPISODE PATIENT DESATED TO 88% WHEN TRANSFERRING FROM RECLINER TO BED. ABLE TO RECOVER IN 2 MIN. NO CHANGES IN TELE AT THIS TIME. WEAK COUGH CONTINUES. NS WITH KCL INFUSING X1 BAG. CALL LIGHT IN REACH. WILL CONTINUE TO MONITOR AND REPORT OFF. DROPPED OF PATIENTS DENTURES.
[2021-07-20 05:07] LABS: BASOPHILS ABSOLUTE AUTO 0.05 K/mm3 (0.00-0.23); BASOPHILS PERCENT AUTO 0 % (0-2); EOSINOPHILS PERCENT AUTO 0 % (0-6); Hematocrit 37.3 % (37.0-53.0); Hemoglobin 12.6 g/dL (13.5-17.5); IMMATURE GRAN ABSOLUTE AUTO 0.49 K/mm3 (0.00-0.10); IMMATURE GRAN PERCENT AUTO 3 % (0-1); LYMPHOCYTES ABSOLUTE AUTO 0.85 K/mm3 (0.84-5.20); LYMPHOCYTES PERCENT AUTO 5 % (21-46); MONOCYTES ABSOLUTE AUTO 0.85 K/mm3 (0.16-1.47); MONOCYTES PERCENT AUTO 5 % (4-13); Mean Corpuscular HGB 31.2 pg (26.0-34.0); Mean Corpuscular HGB Conc 33.8 g/dL (31.5-36.5); Mean Corpuscular Volume 92 fL (80-100); Mean Platelet Volume 11.7 fL (9.1-12.4); NEUTROPHILS PERCENT AUTO 86 % (41-73); Platelet Count 247 K/mm3 (150-400); RDW Coefficient Variation 13.4 % (11.7-14.2); RDW Standard Deviation 45.4 fL (35.1-46.3); Red Blood Cell Count 4.04 M/mm3 (4.30-5.90); White Blood Cell Count 16.34 K/mm3 (4.00-11.30)
[2021-07-20 05:20] LABS: International Normalized Ratio 2.34; Prothrombin Time Results 24.1 Sec (9.7-11.5)
[2021-07-20 05:41] LABS: Alanine Aminotransfer (ALT/SGP 26 U/L (12-78); Albumin, Blood 2.4 g/dL (3.4-5.0); Albumin/Globulin Ratio 0.7 (0.8-1.8); Alk Phos 114 U/L (50-136); Anion Gap 8 mmol/L (6-16); Aspartate Aminotrans (AST/SGOT 50 U/L (12-37); Bilirubin, Total 0.8 mg/dL (0.1-1.0); Blood Urea Nitrogen 16 mg/dL (8-24); Bun/Creatinine Ratio 22.8 (12.0-20.0); CO2, Blood 22 mmol/L (21-32); Calcium, Blood 8.2 mg/dL (8.5-10.1); Chloride, Blood 110 mmol/L (98-108); Globulin, Blood 3.3 g/dL (2.2-4.0); Glomerular Filtration Rate >60 (60-); Glucose, Blood 122 mg/dL (70-99); Potassium, Blood 3.8 mmol/L (3.5-5.5); Sodium, Blood 140 mmol/L (136-145); Total Protein, Blood 5.7 g/dL (6.4-8.2)
--- NOTE | 2021-07-20 06:14 | NUR ---
SHIFT SUMMARY PT RESTED WELL THROUGH PART OF NIGHT. ALERT AND ORIENTED X2. NEEDS BED ALARM ON. TELE AFIB, RATE WAS UP TO 140'S AT START OF SHIFT, BUT IV METOPROLOL GIVEN WITH IMPROVEMENTS TO HR. RATE NOW 100'S TO 110'S. SATS >90% ON ROOM AIR. RN GAVE NIGHTTIME PO MEDS, PT ASPIRATED ALL OF MEDS AND WATER. CLEARING THROAT OFTEN AFTER ASPIRATION. LUNG SOUNDS CHANGED TO GUNKY/WET - NO CHANGES IN O2 SATS. NO C/O CHEST PAIN. LEFT NPO REST OF NGIHT. INCONTINENT X3. ATTENDS CHANGED X3. NO WOUNDS - PREVENTATIVE MEPILEX IN PLACE ON SACRUM. VSS. CALL LIGHT WTIHN REACH, BED IN LOWEST POSITION. BED ALARM ON. WILL CONTINUE TO MONITOR.
--- NOTE | 2021-07-20 08:45 | NUR ---
INITIAL ASSESSMENT: PATIENT IS AWAKE AND LYING IN BED. PT IS ALERT AND ORIENTED TO SELF, MONTH, PRESIDENT, AND SITUATION. HE IS NOT ORIENTED TO PLACE, HE STATES HE CAME IN BECAUSE, "THEY THOUGHT MY BREATHING WAS NOT TOO GOOD." HE DENIES PAIN AT THIS TIME. HRR. LS COARSE T/O, BIOX 95% ON RA, PT HAS COARSE NPC. PER NOC SHIFT RN PATIENT HAD A DIFFICULTY SWALLOWING HIS PILLS AND POSSIBLY ASPIRATED, THIS WAS DISCUSSED WITH MD. HR IRREG, A-FIB. BT+. PPP. PT ASSISTED OOB TO THE CHAIR, HE WAS VERY WEAK AND A MAX ASSIST WITH A GAIT BELT AND FWW. AFTER HE WAS DONE ON THE COMMODE MYSELF AND ANOTHER RN HELPED HIM GET INTO THE RECLINER. CHAIR ALARM IN PLACE. THIS RN TALKED WITH AND UPDATED THE PATIENTS . PER THE THE PATIENT HAS BEEN BETTING PROGRESSIVELY WEAKER AT HOME, SHE STATES THE PATIENT WAS ON THE PT/OT SERVICE VIA HOME HEALTH THROUGH [facility], HE WAS DISCHARGED. HE DOES PT ORDERED THIS ADMISSION. PT STATES HE IS COMFORTABLE IN THE CHAIR. WILL CONTINUE TO MONITOR.
--- NOTE | 2021-07-20 09:41 | NUR ---
COUGHING while taking pills whole with applesauce. Crushed meds and gave to pt with applesauce, while sitting up in the chair. No coughing.
--- NOTE | 2021-07-20 11:30 | NUR ---
CALL PLACED TO DE. ROBERT TO TOUCH BASE. PT CHANGED TO MEDICAL STATUS. VSS. HR IN THE 70S-80S WHILE ASLEEP AND IN THE 110-115 WA. MD TO TALK WITH REGARDING DC PLANNING. PT DENIES ADDITIONAL NEEDS AT THIS TIME. OOB TO THE CHAIR, CHAIR ALARM IN PLACE FOR SAFETY. CALL LIGHT IN REACH, WILL CONTINUE TO MONITOR.
--- NOTE | 2021-07-20 13:50 | NUR ---
REPORT GIVEN TO RANJIT ENCISO MED FLOOR RN. PT WAS TRANSFERRED TO [facility] VIA RECLINER.
[2021-07-20] MEDS ORDERED: DECADRON6 M1 PO (16:50)
[2021-07-20] MEDS ORDERED: CEFD300 PO (16:52)
--- NOTE | 2021-07-20 18:46 | NUR ---
PT ADMITTED FROM 227 AT 1400 TELE A-FIB 95- ALERT TO SELF AND PLACE IN HOSPITAL. VERY [place]. CAME UP FROM PCU IN RECLINER. INCONT IN ATTENDS. ORIENTED TO ROOM SET UP SAFETY AND CALL LIGHT.
--- NOTE | 2021-07-20 18:50 | NUR ---
SUMMARY- PT UP IN CHAIR ALL OF THE SHIFT. CALL LIGHT IN REACH. TOLERATING FOOD AND SMALL AMOUNTS OF FLUID. PLAN TO DISCHARGE TOMORROW ONCE TX SET UP AND DETERMINED IF AND CAREGIVER OK TO CARE FOR PT AT HOME.
[2021-07-21 06:00] LABS: BASOPHILS ABSOLUTE AUTO 0.05 K/mm3 (0.00-0.23); BASOPHILS PERCENT AUTO 0 % (0-2); EOSINOPHILS PERCENT AUTO 0 % (0-6); Hematocrit 34.6 % (37.0-53.0); Hemoglobin 11.5 g/dL (13.5-17.5); IMMATURE GRAN ABSOLUTE AUTO 0.69 K/mm3 (0.00-0.10); IMMATURE GRAN PERCENT AUTO 4 % (0-1); LYMPHOCYTES ABSOLUTE AUTO 0.99 K/mm3 (0.84-5.20); LYMPHOCYTES PERCENT AUTO 6 % (21-46); MONOCYTES ABSOLUTE AUTO 1.09 K/mm3 (0.16-1.47); MONOCYTES PERCENT AUTO 7 % (4-13); Mean Corpuscular HGB 31.1 pg (26.0-34.0); Mean Corpuscular HGB Conc 33.2 g/dL (31.5-36.5); Mean Corpuscular Volume 94 fL (80-100); Mean Platelet Volume 11.6 fL (9.1-12.4); NEUTROPHILS ABSOLUTE AUTO 13.71 K/mm3 (1.96-9.15); NEUTROPHILS PERCENT AUTO 83 % (41-73); Platelet Count 234 K/mm3 (150-400); RDW Coefficient Variation 13.4 % (11.7-14.2); RDW Standard Deviation 45.5 fL (35.1-46.3); White Blood Cell Count 16.53 K/mm3 (4.00-11.30)
--- NOTE | 2021-07-21 06:09 | NUR ---
SHIFT SUMMARY PATIENT ALERT AND ORIENTED X2. NO COMPLAINTS OF PAIN OR SHORTNESS OF BREATH. NO ACUTE ISSUES NOTED OVERNIGHT. IV PATENT AND FLUSHED. BED IN LOWEST POSITION WITH WHEELS LOCKED AND ALARM ON. CALL LIGHT WITHIN REACH. REPORT GIVEN TO ONCOMING RN.
[2021-07-21 06:15] LABS: International Normalized Ratio 3.14; Prothrombin Time Results 31.8 Sec (9.7-11.5)
[2021-07-21 06:28] LABS: Alanine Aminotransfer (ALT/SGP 23 U/L (12-78); Albumin, Blood 2.2 g/dL (3.4-5.0); Albumin/Globulin Ratio 0.7 (0.8-1.8); Alk Phos 108 U/L (50-136); Anion Gap 7 mmol/L (6-16); Aspartate Aminotrans (AST/SGOT 49 U/L (12-37); Bilirubin, Total 0.7 mg/dL (0.1-1.0); Blood Urea Nitrogen 17 mg/dL (8-24); Bun/Creatinine Ratio 23.7 (12.0-20.0); CO2, Blood 24 mmol/L (21-32); Calcium, Blood 7.3 mg/dL (8.5-10.1); Chloride, Blood 111 mmol/L (98-108); Creatinine, Blood 0.72 mg/dL (0.60-1.20); Glomerular Filtration Rate >60 (60-); Glucose, Blood 110 mg/dL (70-99); Potassium, Blood 3.7 mmol/L (3.5-5.5); Sodium, Blood 142 mmol/L (136-145); Total Protein, Blood 5.2 g/dL (6.4-8.2)
--- NOTE | 2021-07-21 13:43 | NUR ---
LATE ENTRY COPIED FROM [facility] EMR ADMIT: 07/21/21 DISCHARGE: TBD DX: COVID-19 HYPOXIA, AFIB WITH RVR CC: Renee HERRERA OC CALL: CALL AT HOME FOR LC RESIDENCE: LIVES AT HOME WITH CAREGIVER: YON NICE () [phone] HAS FULLTIME CAREGIVER AT HOME (DAUGHTER) DME: WHEELCHAIR CCM: NO RECORD HHC PRIOR TO ADMIT: [facility] UPDATE 07/20/21: PER CHART REVIEW WITH DR. ROBERT, PT. APPROPRIATE FOR D/C TODAY. CONTACTED PATIENT'S AND SHE INITIALLY SAID THAT SHE HAD THE SUPPORT SHE NEEDED TO PROVIDE CARE AT HOME WITH HH ASSISTANCE THROUGH [facility]. CONTACTED PATIENT'S AGAIN AND DAUGHTER ANSWERED. DAUGHTER STATES THAT SHE IS CAREGIVER AND THAT THEY ARE NOT CONFIDENT THAT THEY WILL BE ABLE TO PROVIDE THE PT. WITH THE CARE THAT HE NEEDS. CONCERN WITH NEEDING ADDITIONAL CAREGIVER SUPPORT. FAMILY WAS UNDER THE IMPRESSION THAT MEDICARE COVERED THE COST OF CREDIT RISK OFFICER CARE IN ASSISTED LIVING. DISCUSSED THAT LONG-TERM CARE WOULD REQUIRE MEDICAID, SPEND DOWN, OR FINANCING THE COST PERSONALLY. DAUGHTER ADVISED THAT THEY COULD NOT AFFORD ASSISTED LIVING AND THAT SPEND DOWN WAS NOT AN OPTION WITH PATIENT'S STILL LIVING IN THE HOME. DISCUSSED PATIENT'S CARE WITH DR. ROBERT. RECOMMENDED THAT PT. STAY AT LEAST ONE MORE NIGHT AND HAVE ADDITIONAL PT EVAL. [facility] TO [facility]'S SERVICE CONNECTION PERCENTAGE FOR CAREGIVER ASSISTANCE. WILL DISCUSS CASE FURTHER WITH DR. ZENDJEAS TOMORROW.
--- NOTE | 2021-07-21 13:45 | NUR ---
UPDATE 07/21/21: PER CHART REVIEW WITH DR. ZENDEJAS, PT. WILL CONTINUE TO RECEIVE IV DIURETICS X 2 ADDITIONAL DAYS. REQUESTED PALLIATIVE CARE TO ASSESS PATIENT'S CONDITION AND CONSULT WITH FAMILY. CALL [facility] TO [facility] TO DISCUSS [facility]ICE [facility]CTION. CAREGIVER PACKET WILL BE LEFT AT [facility] BY FAMILY BIRTHPLACE ENTRANCE FOR FAMILY. [facility] HAS BEEN NOTIFIED THAT PT. COULD POTENTIALLY DISCHARGE ON HH OR HOSPICE.
--- NOTE | 2021-07-21 16:30 | NUR ---
After chart review and meeting pt, had a talk with pt's Noa regarding options post hospitalization. Given his history, it appears he would easily qualify for hospice. He has an EF of 25%, Karnofsky score is 50%, NYHA class 111. He also requires assistance in 5/6 ADL's. Had a long discussion with pt's about hospice, and she does understand the benefit in the pt choosing hospice vs home healh when it comes to his needs, and what his current wishes look like for the future. No decision had veen reached today, but they will very likely be ready for the conversation tomorrow.
--- NOTE | 2021-07-21 17:31 | NUR ---
SUMMARY- PT ALERT TO SELF AND THAT HE'S IN THE HOSPITAL. VSS, HR IRREG RATE 100'S. TOLERATING SMALL AMOUNTS OF FOOD AND TAKING IN FLUIDS. UP TO CHAIR WITH PT 2 PERSON MAX ASSIST WITH SLIDE BOARD. 2 MAX ASSIST GAIT BELT BACK TO BED. INCONT ATTENDS, ROUTINE TURNS IN BED. AWAITING PLAN FOR PT'D DISCHARGE.
--- NOTE | 2021-07-21 18:09 | NUR ---
PT UP TO CHAIR FOR A SHORT TIME TODAY, PHYSICAL THERAPY WORKED WITH PT TODAY AND IS RECOMMENDING A ENTERPRISE MANAGER FIBERGLASS MACHINE OPERATOR AT HOME OR POSSIBLY ASSISTED LIVING. NO ACUTE CHANGES NOTED THIS SHIFT, WILL CONTINUE TO MONITOR AND REPORT TO ONCPHIL RN
--- NOTE | 2021-07-22 06:51 | NUR ---
SHIFT SUMMARY PATIENT ALERT AND ORIENTED X2. NO COMPLAINTS OF PAIN OR SHORTNESS OF BREATH. CONTINUES ON ROOM AIR. NO ACUTE ISSUES NOTED. CALL LIGHT WITHIN REACH. REPORT GIVEN TO ONCOMING RN.
[2021-07-22 09:04] LABS: International Normalized Ratio 2.17; Prothrombin Time Results 22.4 Sec (9.7-11.5)
[2021-07-22 09:09] LABS: Alanine Aminotransfer (ALT/SGP 26 U/L (12-78); Albumin, Blood 2.5 g/dL (3.4-5.0); Albumin/Globulin Ratio 0.8 (0.8-1.8); Alk Phos 123 U/L (50-136); Anion Gap 6 mmol/L (6-16); Aspartate Aminotrans (AST/SGOT 56 U/L (12-37); Bilirubin, Total 0.9 mg/dL (0.1-1.0); Blood Urea Nitrogen 16 mg/dL (8-24); Bun/Creatinine Ratio 22.9 (12.0-20.0); CO2, Blood 26 mmol/L (21-32); Calcium, Blood 8.4 mg/dL (8.5-10.1); Chloride, Blood 107 mmol/L (98-108); Globulin, Blood 3.3 g/dL (2.2-4.0); Glomerular Filtration Rate >60 (60-); Glucose, Blood 121 mg/dL (70-99); Magnesium, Blood 1.5 mg/dL (1.6-2.4); Phosphorus, Blood 2.2 mg/dL (2.5-4.9); Sodium, Blood 139 mmol/L (136-145); Total Protein, Blood 5.8 g/dL (6.4-8.2)
--- NOTE | 2021-07-22 09:15 | NUR ---
Update 07/21/21: Palliative care nurse Yojana discussed the option of hospice with patient's Noa. Patient's will discuss with family and very likely to agree to hospice services. She wants to give Alfonzo a chance be able to rest and live out the rest of his life in peace. She was very interested in the services that hospice provides. Yojana planning to discuss with Alfonzo as well. Plan to call patient's tomorrow to discuss further and update [facility] when appropriate.
[2021-07-22 11:58] LABS: BASOPHILS ABSOLUTE AUTO 0.08 K/mm3 (0.00-0.23); BASOPHILS PERCENT AUTO 0 % (0-2); EOSINOPHILS PERCENT AUTO 0 % (0-6); Hematocrit 36.5 % (37.0-53.0); Hemoglobin 12.2 g/dL (13.5-17.5); IMMATURE GRAN ABSOLUTE AUTO 0.74 K/mm3 (0.00-0.10); IMMATURE GRAN PERCENT AUTO 4 % (0-1); LYMPHOCYTES ABSOLUTE AUTO 1.21 K/mm3 (0.84-5.20); LYMPHOCYTES PERCENT AUTO 6 % (21-46); MONOCYTES ABSOLUTE AUTO 1.76 K/mm3 (0.16-1.47); MONOCYTES PERCENT AUTO 8 % (4-13); Mean Corpuscular HGB Conc 33.4 g/dL (31.5-36.5); Mean Corpuscular Volume 93 fL (80-100); NEUTROPHILS ABSOLUTE AUTO 17.13 K/mm3 (1.96-9.15); NEUTROPHILS PERCENT AUTO 82 % (41-73); Platelet Count 284 K/mm3 (150-400); RDW Coefficient Variation 13.6 % (11.7-14.2); RDW Standard Deviation 45.8 fL (35.1-46.3); Red Blood Cell Count 3.94 M/mm3 (4.30-5.90); White Blood Cell Count 20.92 K/mm3 (4.00-11.30)
--- NOTE | 2021-07-22 13:47 | NUR ---
Patient's family has decided to involve hospice in patient's care. Contacted Janessa with [facility] per family request. [facility] unable to get pt. in until next week. Discussed with family and they have requested [facility] and [facility] can provide same day hospice intake tomorrow. Discussed with Dr. Marquez. Plan for pt. to D/C on [facility] hospice tomorrow. Marilou with [facility] will be contacting the family.
--- NOTE | 2021-07-22 15:56 | NUR ---
Pt's code status changed to DNR in [facility] with VO from Dr. Marquez, as his POLST in [facility] is DNR.
--- NOTE | 2021-07-22 16:02 | NUR ---
SHIFT SUMMARY PATIENT DENIES PAIN, NAUSEA, AND SHORTNESS OF BREATH. PATIENT IS EATING AND DRINKING POORLY. PATIENT HAS A WET COUGH. PATIENT'S FAMILY DECIDED TO PURSUE HOSPICE CARE AND PATIENT WILL BE DISCHARGING TOMORROW, 07/23, WITH [facility]. TRANSPORT IS SET UP FOR 11AM. CODE STATUS CHANGED TO DNR, PER DR. GUTIERREZ ORDER. PATIENT WAS UP TO THE CHAIR WITH 2 ASSIST. PATIENT IS VERY HARD OF HEARING. PATIENT IS PLEASANT AND COOPERATIVE WITH CARE.
--- NOTE | 2021-07-22 16:44 | NUR ---
UPDATE PATIENT HAS INCREASING WET COUGH THROUGHOUT DAY, ESPECIALLY AFTER EATING. DR. GUTIERREZ NOTIFIED. NO NEW ORDERS, WILL CONTINUE TO MONITOR PATIENT.
--- NOTE | 2021-07-23 00:55 | NUR ---
2114 pt vomitted brown emesis which appears to look like stool. pt is drowsy but arousible to sound. pt has been cleaned up and hob has been elevated. family notified of this and family decided to put pt on comfort care. hospitalist dr. batres notifed. comfort care orders in place.
--- NOTE | 2021-07-23 06:09 | NUR ---
KICK PLATE INSTALLER SUMMARY PT HAS SLEPT WELL ALL NIGHT. NO SIGNS OF PAIN OR AIR HUNGER. REPOSITIONNIG PROVIDED, WELL OTHER COMFORT MEASURES. PT IS LAYING ON SIDE PROPPED WITH PILLOWS ON BACK. BED ALARM ON, CALL LIGHT WITHIN REACH, WILL CONTINUE TO MONITOR.
--- NOTE | 2021-07-23 09:30 | NUR ---
Update 07/23/21: [facility] has scheduled transport for pt. at 11 am this morning. All DME has been taken care of and family is aware of D/C time. Pt. will have a same day hospital discharge and hospice intake. [facility] has denied any further needs at this time. LC team will contact patient's family within 24 - 48 hours of discharge to check-in. Noa is aware that she can contact Dr. Villegas (PCP) at any time if she has questions or concerns
[2021-07-23] MEDS ORDERED: ATIVAN0.5 MG PO (11:17)
[2021-07-23] MEDS ORDERED: HYOS.125 SL (11:19)
[2021-07-23] MEDS ORDERED: MORP20L PO (11:21)
== END 2021-07-23 11:33 | disposition hospice, home (50) | DRG 177 ==
LOC: ER 16:40 → SURS 19:39 → ERHOLD 19:39 → MEDS 19:39 → SURS 07-17 13:14 → MEDS 07-20 14:03 → ENPENDDIS 07-20 15:45 → MEDS 07-21 20:24
PROVIDERS: Emergency Medicine; Family Medicine; ADMIT Internal Medicine
PROC: 8E0ZXY6 Isolation (ICD-10-PCS; principal; 2021-07-23)
PROC: XW033E5 Introduction of Remdesivir Anti-infective into Peripheral Vein, Percutaneous Approach, New Technology Group 5 (ICD-10-PCS; 2021-07-23)
PROC: 3E0333Z Introduction of Anti-inflammatory into Peripheral Vein, Percutaneous Approach (ICD-10-PCS; 2021-07-23)
DX: U07.1 COVID-19 (principal); J96.01 Acute respiratory failure with hypoxia; J12.82 Pneumonia due to coronavirus disease 2019; G93.41 Metabolic encephalopathy; I50.22 Chronic systolic (congestive) heart failure; I24.8 Other forms of acute ischemic heart disease; I48.20 Chronic atrial fibrillation, unspecified; Z51.5 Encounter for palliative care; Z66 Do not resuscitate; E78.5 Hyperlipidemia, unspecified; H91.90 Unspecified hearing loss, unspecified ear; R11.13 Vomiting of fecal matter; R14.0 Abdominal distension (gaseous); I11.0 Hypertensive heart disease with heart failure; I25.10 Atherosclerotic heart disease of native coronary artery without angina pectoris; E86.0 Dehydration; Z99.3 Dependence on wheelchair; Z86.73 Personal history of transient ischemic attack (TIA), and cerebral infarction without residual deficits; Z95.1 Presence of aortocoronary bypass graft; Z98.890 Other specified postprocedural states; Z79.01 Long term (current) use of anticoagulants; F03.90 Unspecified dementia, unspecified severity, without behavioral disturbance, psychotic disturbance, mood disturbance, and anxiety; Z79.899 Other long term (current) drug therapy
CPT/HCPCS: 36415; 71045; 80053; 80162; 81001; 82550; 83735; 84100; 84484; 85025; 85610; 86140; 87040; 87077; 87086; 87186; 93005; 93010; 96365; 96375; 96376; 97110; 97162; 97530; 99285-25; A9270; J0696; J1100; J3430; J3480; J7030; J7050; J7120